=== PATIENT | female | born 2000 | race Caucasian/White ===

== ENCOUNTER 2021-04-17 16:08 | Emergency (ER) | payer BC ==
[~2021-04-17] VITALS: Ht 157.5 cm; Wt 96.0 kg
[2021-04-17 16:20] VITALS: BP 124/79
[2021-04-17] MEDS ORDERED: ondansetron 4mg rapidly disintigrating tab PO ONE (16:30)
[2021-04-17] MEDS ORDERED: ondansetron 4mg/5ml UD cup PO ONE (16:30)
[2021-04-17] MEDS ORDERED: ONDA4TAB6 PO (17:01)
[2021-04-17 17:31] LABS: CLARITY,URINE CLEAR (Clear); COLOR,URINE YELLOW (Yellow); GLUCOSE, URINE NEGATIVE (Neg); KETONES,URINE NEGATIVE (Neg); LEUKOCYTE ESTERASE ,URINE NEGATIVE (Neg); NITRITES, URINE NEGATIVE (Neg); OCCULT BLOOD,URINE NEGATIVE (Neg); PROTEIN,URINE NEGATIVE (Neg); UROBILINOGEN,URINE 0.2 E.U/dL (0.2-1.0)
[2021-04-17 17:32] LABS: URINE HCG NEGATIVE (NEG)
[2021-04-17 17:36] LABS: UA COLLECTION TYPE CLN CATCH MIDSTREAM
== END 2021-04-17 17:21 | disposition home or self-care (01) ==
LOC: ER 16:08
DX: B34.9 Viral infection, unspecified (principal); R50.9 Fever, unspecified; R11.2 Nausea with vomiting, unspecified; R10.84 Generalized abdominal pain; Z88.8 Allergy status to other drugs, medicaments and biological substances; Z79.899 Other long term (current) drug therapy
CPT/HCPCS: 81003; 81025; 99283